=== PATIENT | male | born 1945 | race Caucasian/White ===

== ENCOUNTER → 2017-11-15 | Outpatient (CLI) | payer MEDICARE, OTHER ==
[~2017-11-15] MED LIST: ASPI-1181 PO; CETI-101 PO; FURO20TA4 PO; GABA-531 PO; LOSA25TA21 PO; NITR0.4T50 SL; OMEP20CA10 PO; PRAM0.5T3 PO; TAMS0.4C32 PO
== END | disposition home or self-care (01) ==
LOC: SHCH 08:54
PROVIDERS: ATTEND Internal Medicine Cardiovascular Disease
DX: I87.2 Venous insufficiency (chronic) (peripheral) (principal)
CPT/HCPCS: 93971

== ENCOUNTER → 2017-12-13 | Outpatient (CLI) | payer MEDICARE, OTHER | END | disposition home or self-care (01) | LOC: SHCH 14:25 | PROVIDERS: ATTEND Internal Medicine Cardiovascular Disease | DX: Z09 Encounter for follow-up examination after completed treatment for conditions other than malignant neoplasm (principal) | CPT/HCPCS: 93971 ==

== ENCOUNTER → 2020-11-19 | Outpatient (CLI) | payer MEDICARE, OTHER ==
[~2020-11-19] MED LIST changes: -ASPI-1181 PO; +ASPI-1443 PO; -CETI-101 PO; +CETI-89 PO; -LOSA25TA21 PO; +LOSA25TA41 PO; -OMEP20CA10 PO; +OMEP20CA12 PO
== END | disposition home or self-care (01) ==
LOC: SHCH 08:40
PROVIDERS: ATTEND Internal Medicine Cardiovascular Disease
DX: I87.2 Venous insufficiency (chronic) (peripheral) (principal); R05 Cough
CPT/HCPCS: 93970

== ENCOUNTER → 2020-12-23 | Outpatient (CLI) | payer MEDICARE, OTHER | END | disposition home or self-care (01) | LOC: SHCH 11:14 | PROVIDERS: ATTEND Internal Medicine Cardiovascular Disease | DX: Z09 Encounter for follow-up examination after completed treatment for conditions other than malignant neoplasm (principal); I87.2 Venous insufficiency (chronic) (peripheral) | CPT/HCPCS: 93971 ==

== ENCOUNTER → 2020-12-30 | Outpatient (CLI) | payer MEDICARE | END | disposition home or self-care (01) | LOC: SHCH 10:44 | PROVIDERS: ATTEND Internal Medicine Cardiovascular Disease | DX: I87.2 Venous insufficiency (chronic) (peripheral) (principal); Z09 Encounter for follow-up examination after completed treatment for conditions other than malignant neoplasm | CPT/HCPCS: 93971 ==

== ENCOUNTER → 2021-01-15 | Outpatient (CLI) | payer MEDICARE, OTHER | END | disposition home or self-care (01) | LOC: SHCH 12:54 | PROVIDERS: ATTEND Internal Medicine Cardiovascular Disease | DX: R55 Syncope and collapse (principal) | CPT/HCPCS: 93306 ==

== ENCOUNTER → 2023-04-23 | Outpatient (CLI) | payer MEDICARE, OTHER | END | disposition home or self-care (01) | LOC: SHCH 13:21 | PROVIDERS: ATTEND Internal Medicine Cardiovascular Disease | DX: I87.2 Venous insufficiency (chronic) (peripheral) (principal) | CPT/HCPCS: 93970 ==